=== PATIENT | female | born 1995 | race Caucasian/White ===

== ENCOUNTER 2017-09-23 12:10 | Emergency (ER) | payer OTHER ==
[2017-09-23 12:33] VITALS: BP 123/69
[2017-09-23] MEDS ORDERED: LIDOCAINE 2% VISCOUS SOLN 20 ML UDCUP PO ONE (13:41)
[2017-09-23] MEDS ORDERED: PENICILLIN G BENZATHINE 1.2 MILLION UNIT/2 ML DISP.SYRIN IM ONE (13:41)
[2017-09-23] MEDS ORDERED: IBUPROFEN 800 MG TABLET PO ONE (13:41)
--- NOTE | 2017-09-23 13:43 | ER Document Report ---
HPI - HPI Patient complains to provider of: sore throat Onset: Other - 2 days Onset/Duration: Persistent Quality of pain: Stabbing Pain Level: 2 Context: Patient complains of sore throat for the past 2 days with tender lymph nodes to the neck. Patient does report recent strep exposure. Associated Symptoms: Earache, Sore throat. denies: Fever Exacerbated by: Denies Relieved by: Denies Similar symptoms previously: Yes Recently seen / treated by doctor: No - ROS ROS below otherwise negative: Yes Systems Reviewed and Negative: Yes All other systems reviewed and negative - CONSTITUTIONAL Constitutional: DENIES: Fever - EENT EENT: REPORTS: Sore Throat, Ear Pain - RESPIRATORY Respiratory: DENIES: Coughing - GASTROINTESTINAL Gastrointestinal: DENIES: Nausea - DERM Skin Color: Normal Skin Problems: None Past Medical History - General Information source: Patient - Social History Smoking Status: Current Every Day Smoker Frequency of alcohol use: None Drug Abuse: None Occupation: [employer] Family History: Reviewed & Not Pertinent Patient has suicidal ideation: No Patient has homicidal ideation: No - Medical History Medical History: Negative Renal/ Medical History: Denies: Hx Peritoneal Dialysis Surgical Hx: Negative Vertical Provider Document - CONSTITUTIONAL Agree With Documented VS: Yes Exam Limitations: No Limitations General Appearance: WD/WN, No Apparent Distress - INFECTION CONTROL TRAVEL OUTSIDE OF THE [place] IN LAST 30 DAYS: No - HEENT HEENT: Atraumatic, Normocephalic, Pharyngeal Tenderness, Pharyngeal Erythema. negative: Pharyngeal Exudate, Tympanic Membrane Red, Tympanic Membrane Bulging - NECK Neck: Lymphadenopathy-Left, Lymphadenopathy-Right - RESPIRATORY Respiratory: Breath Sounds Normal, No Respiratory Distress O2 Sat by Pulse Oximetry: 100 - CARDIOVASCULAR Cardiovascular: Regular Rate, Regular Rhythm, No Murmur - BACK Back: Normal Inspection - MUSCULOSKELETAL/EXTREMETIES Musculoskeletal/Extremeties: MAEW - NEURO Level of Consciousness: Awake, Alert, Appropriate Motor/Sensory: No Motor Deficit - DERM Integumentary: Warm, Dry Course - Vital Signs Vital signs: Temp Pulse Resp BP Pulse Ox 98.6 F 63 20 123/69 100 09/23/17 12:31 09/23/17 12:31 09/23/17 12:31 09/23/17 12:31 09/23/17 12:31 Discharge - Discharge Clinical Impression: Sore throat, Exposure to strep throat Condition: Stable Disposition: HOME, SELF-CARE Instructions: Antibiotic Shot ([facility]), Oral Narcotic Medication ([facility]), Sore Throat ([facility]) Additional Instructions: Return immediately for any new or worsening symptoms Followup with your primary care provider, call tomorrow to make a followup appointment Prescriptions: Naproxen [Naprosyn 250 Nmg Tablet] 1 tab PO BID #14 tablet Forms: Return to Work Referrals: [facility] [Provider Group] - Follow up as needed
== END 2017-09-23 14:25 | disposition home or self-care (01) ==
LOC: ER 12:10
DX: J02.9 Acute pharyngitis, unspecified (principal); F17.200 Nicotine dependence, unspecified, uncomplicated
CPT/HCPCS: 99282; 96372; J3490; J0561

== ENCOUNTER → 2017-10-14 | Outpatient (CLI) | payer SELFPAY ==
--- NOTE | 2017-10-14 17:12 | RADIOLOGY REPORT (SQ) ---
EXAM DESCRIPTION: U/S OB TRANSVAGINAL W/O DOP COMPLETED DATE/TIME: 10/14/2017 4:57 pm REASON FOR STUDY: Z34.81 ENCOUNTER FOR SUPRVSN OF NORMAL , FIRST TRIM COMPARISON: None. TECHNIQUE: Transvaginal static and realtime grayscale images acquired of the pelvis. Additional paul cted spectral and color Doppler images recorded. All images stored on PACs. bHCG: Not available. LIMITATIONS: None. FINDINGS: FETUS: Living intrauterine . EGA: 6 weeks 5 days ALEX: 06/04/2018 FHR: 122 beats per minute. SUBCHORIONIC BLEED: There is questionably an 8 x 13 x 8 mm subchorionic bleed. SIZE OF BLEED: See above UTERUS: No masses or anomalies. 8.3 x 6.1 x 4.9 cm. CERVICAL LENGTH: 2.9 cm. Closed. RIGHT ADNEXA: Normal ovary with normal vascular flow. 2.1 x 1.4 x 1.4 cm. No adnexal free fluid. No adnexal masses. LEFT ADNEXA: Not seen. No adnexal free fluid. No adnexal masses. FREE FLUID: A small amount of free fluid is present. OTHER: No other significant finding. IMPRESSION: LIVING INTRAUTERINE . EGA 6 weeks 5 days. Small subchorionic bleed is suggested. Trimester of : First - 0 to 13 weeks. TECHNICAL DOCUMENTATION: JOB ID: [id number] [employer]- All Rights Reserved
== END ==
LOC: RAD 15:43
PROVIDERS: ATTEND Nurse Practitioner Women's Health
DX: Z34.81 Encounter for supervision of other normal pregnancy, first trimester (principal)
CPT/HCPCS: 76817

== ENCOUNTER 2018-01-31 21:54 | Emergency (ER) | payer MEDICAID ==
[2018-01-31 22:16] VITALS: BP 125/65
--- NOTE | 2018-01-31 22:30 | ER Document Report ---
HPI - HPI Patient complains to provider of: bartholin gland abscess Onset: Other - several days Onset/Duration: Worse Pain Level: 4 Context: 22 yo 5 1/2 months with 3rd episode of inferior introitus/labia abscess. Does not want another Wort catheter again. No fever. Feels baby move. Associated Symptoms: None Exacerbated by: Movement Relieved by: Denies - ROS ROS below otherwise negative: Yes Systems Reviewed and Negative: Yes All other systems reviewed and negative Past Medical History - General Information source: Patient - Social History Smoking Status: Never Smoker Frequency of alcohol use: None Drug Abuse: None Lives with: Family Family History: Reviewed & Not Pertinent - Medical History Medical History: Negative Renal/ Medical History: Denies: Hx Peritoneal Dialysis Surgical Hx: Negative Vertical Provider Document - CONSTITUTIONAL Agree With Documented VS: Yes Exam Limitations: No Limitations General Appearance: No Apparent Distress - INFECTION CONTROL TRAVEL OUTSIDE OF THE [place] IN LAST 30 DAYS: No - HEENT HEENT: Normocephalic - NECK Neck: Supple - RESPIRATORY O2 Sat by Pulse Oximetry: 99 - REPRODUCTIVE Notes: large abscess barthlin gland Course - Vital Signs Vital signs: Temp Pulse Resp BP Pulse Ox 98.4 F 99 20 125/65 99 01/31/18 22:14 01/31/18 22:14 01/31/18 22:14 01/31/18 22:14 01/31/18 22:14 Procedures - Incision and Drainage Left Labia Time completed: 23:34 Type: Simple Anesthetic type: 1% Lidocaine mL's of anesthetic: 3 Blade size: 11 I&D procedure: Betadine prep applied Incision Method: Incision made by scalpel Amount/type of drainage: large pus drainage Discharge - Discharge Clinical Impression: Bartholin's gland abscess I and D Condition: Good Disposition: HOME, SELF-CARE Instructions: Abscess ([facility]), Acetaminophen, Post Incision and Drainage, Warm Packs ([facility]) Additional Instructions: warm compress sitz bath continue the keflex to er if worse see dr garcia on saturday for recheck Referrals: JOSE LUIS GARCIA MD [ACTIVE STAFF] - Follow up as needed
[2018-01-31] MEDS ORDERED: LIDOCAINE 4%/TETRACAINE 0.5%/EPI 0.18% 5 ML TOPICAL SOLN TOP ONE (22:33)
== END 2018-01-31 23:46 | disposition home or self-care (01) ==
LOC: ER 21:54
PROC: 0U9L0ZZ Drainage of Vestibular Gland, Open Approach (ICD-10-PCS; principal; 2018-01-31)
DX: N75.1 Abscess of Bartholin's gland (principal); Z3A.22 22 weeks gestation of pregnancy
CPT/HCPCS: 99283; 56420; J3490